=== PATIENT | male | born 1950 | race Caucasian/White ===

== ENCOUNTER 2021-12-27 16:00 | Inpatient (IN) ==
[2021-12-27] MEDS ORDERED: *HR* LORazepam 2 MG/ML VIAL IVP ONE (16:21)
[2021-12-27 16:33] LABS: Basophils % 0.7 %; Eosinophils # 0.5 K/mcL (0.0-0.6); Eosinophils % 9.5 %; Hematocrit 42.4 % (37.5-50.1); Hemoglobin 14.1 g/dL (12.9-16.9); Immature Granulocytes % 0.4 % (0-4); Lymphocytes # 1.8 K/mcL (0.6-4.6); Lymphocytes % 31.8 %; Mean Corpuscular HGB Conc 33.3 g/dL (31.6-35.5); Mean Corpuscular Hemoglobin 29.6 pg (28.0-33.3); Mean Corpuscular Volume 89.1 fL (83.0-100.0); Mean Platelet Volume 9.8 fL (9.4-12.4); Monocytes # 0.5 K/mcL (0.0-1.3); Monocytes % 8.8 %; Neutrophils # 2.8 K/mcL (1.6-8.9); Platelet Count 293 K/mcL (140-400); Red Blood Count 4.76 M/mcL (4.19-5.50); Red Cell Distribution Width 14.8 % (11.5-14.5); Segmented Neutrophils % 48.8 %; White Blood Count 5.7 K/mcL (4.3-11.1)
[2021-12-27 16:54] LABS: Acetaminophen < 10 mcg/mL (10-20); BUN/Creatinine Ratio 16 (6-26); Blood Urea Nitrogen 11 mg/dL (8-23); Carbon Dioxide 31 mEq/L (23-29); Chloride 105 mEq/L (98-107); Chol/HDL Ratio 1.7 (0-4.9); Cholesterol 151 mg/dL (< 200); Ethanol 125 mg/dL (Less than 10); Glucose 97 mg/dL (70-105); HDL Cholesterol 91 mg/dL (40-59); LDL Cholesterol,Calculated 46 mg/dL (< 100); Osmolality,Calculated 293 (280-300); Potassium 3.4 mEq/L (3.5-5.1); Salicylate < 2.5 mg/dL (15.0-30.0); Sodium 142 mEq/L (136-145); Triglycerides 69 mg/dL (< 150); eGFR For African Americans > 60 (> 60); eGFR For Non-African Americans > 60 (> 60)
[2021-12-27 16:57] LABS: Troponin I < 0.03 ng/mL (< 0.04)
[2021-12-27 18:36] LABS: Estimated Average Glucose 120 mg/dl; Hemoglobin A1C 5.8 %
[2021-12-27 18:50] LABS: Bacteria,Urine Few per hpf (None-Few); Bilirubin,Urine Negative (Negative); Blood,Urine Negative (Negative); Clarity,Urine Turbid (Clear); Color,Urine Light-Yellow (Yellow); Glucose,Urine (UA) Normal (Normal); Hyaline Casts,Urine Few per lpf (None Seen); Ketones,Urine Negative (Negative); Leukocyte Esterase,Urine Negative (Negative); Mucus,Urine Few per lpf (None-Few); Nitrite,Urine Negative (Negative); Protein,Urine Trace mg/dL (Neg-Trace); RBC,Urine 0-3 per hpf (0-3); Specific Gravity,Urine 1.018 (1.010-1.025); Squamous Epithelial Cell,Urine Few per hpf (None-Few); Urobilinogen,Urine Normal (Normal)
[2021-12-27 19:03] LABS: Amphetamine Screen,Urine Negative ng/mL (Cutoff=1000); Barbiturate Screen,Urine Negative ng/mL (Cutoff=200); Benzodiazepines Screen,Urine Positive ng/mL (Cutoff=200); Cannabinoid Screen,Urine Negative ng/mL (Cutoff = 50); Cocaine Screen,Urine Negative ng/mL (Cutoff= 300); Opiate Screen,Urine Negative ng/mL (Cutoff=300); Phencyclidine Screen,Urine Negative ng/mL (Cutoff=25)
[2021-12-27] MEDS ORDERED: Naloxone 0.4 MG/ML INJ IVP PRN (19:59)
[2021-12-27] MEDS ORDERED: *HR* LORazepam 1 MG TABLET PO PRN ×2 (19:59)
[2021-12-27] MEDS ORDERED: *HR* LORazepam 2 MG/ML VIAL IVP PRN ×2 (19:59)
[2021-12-27] MEDS ORDERED: Ondansetron 4 MG/2 ML VIAL IVP ONE (20:05)
[2021-12-27 21:04] LABS: Influenza A PCR Negative (Negative); Influenza B PCR Negative (Negative); Resp. Syncytial Virus PCR Negative (Negative)
[2021-12-27 21:08] LABS: SARS-CoV-2 by PCR (In House) Negative (Negative)
[2021-12-27] MEDS: *HR* LORazepam 2 MG/ML VIAL IVP PRN (23:03)
[2021-12-28 02:50] LABS: Basophils % 0.7 %; Eosinophils # 0.7 K/mcL (0.0-0.6); Eosinophils % 11.7 %; Hematocrit 43.3 % (37.5-50.1); Hemoglobin 14.2 g/dL (12.9-16.9); Immature Granulocytes % 0.5 % (0-4); Lymphocytes # 1.5 K/mcL (0.6-4.6); Mean Corpuscular HGB Conc 32.8 g/dL (31.6-35.5); Mean Corpuscular Hemoglobin 29.8 pg (28.0-33.3); Mean Corpuscular Volume 90.8 fL (83.0-100.0); Mean Platelet Volume 9.7 fL (9.4-12.4); Monocytes # 0.7 K/mcL (0.0-1.3); Monocytes % 12.3 %; Platelet Count 271 K/mcL (140-400); Red Blood Count 4.77 M/mcL (4.19-5.50); Red Cell Distribution Width 14.7 % (11.5-14.5); Segmented Neutrophils % 49.8 %
[2021-12-28 03:27] LABS: Alanine Aminotransferase 26 Units/L (7-52); Albumin 3.7 g/dL (3.5-5.7); Albumin/Globulin Ratio 1.5 (1.1-2.2); Alkaline Phosphatase 55 Units/L (34-104); Aspartate Amino Transferase 26 Units/L (13-39); BUN/Creatinine Ratio 21 (6-26); Bilirubin,Total 0.5 mg/dL (0.3-1.0); Blood Urea Nitrogen 15 mg/dL (8-23); Calcium 8.7 mg/dL (8.6-10.3); Carbon Dioxide 33 mEq/L (23-29); Chloride 106 mEq/L (98-107); Globulin 2.4 g/dL (2.4-3.5); Glucose 95 mg/dL (70-105); Magnesium 1.7 mg/dL (1.6-2.6); Osmolality,Calculated 297 (280-300); Phosphorous 4.2 mg/dL (2.7-4.5); Potassium 4.5 mEq/L (3.5-5.1); Sodium 143 mEq/L (136-145); Total Protein 6.1 g/dL (6.4-8.9); Troponin I < 0.03 ng/mL (< 0.04); eGFR For African Americans > 60 (> 60); eGFR For Non-African Americans > 60 (> 60)
[2021-12-28] MEDS: *HR* Heparin 5,000 UNIT/ML VIAL SQ SCH ×3 (05:15→19:47)
[2021-12-28] MEDS: *HR* LORazepam 2 MG/ML VIAL IVP PRN ×2 (12:53→18:35)
[2021-12-28] MEDS ORDERED: Melatonin 3 MG TABLET PO PRN (12:58)
[2021-12-28] MEDS: Aspirin Enteric Coated 81 MG Tablet PO SCH (13:16)
[2021-12-28] MEDS: Metoprolol XL (24 HR) Succ 25 MG TAB.ER.24H PO SCH (13:16)
[2021-12-28] MEDS: amLODIPine 5 MG TABLET PO SCH (13:16)
[2021-12-28] MEDS: Ondansetron ODT 4 MG TAB.RAPDIS SL PRN (13:17)
[2021-12-28] MEDS: Gabapentin 400 MG CAPSULE PO SCH ×2 (16:44→19:46)
[2021-12-28] MEDS: Acetaminophen 325 MG TABLET PO PRN (18:35)
[2021-12-28] MEDS: Ipratropium/Albuterol Neb 3 ML IH PRN (22:42)
[2021-12-29] MEDS: *HR* LORazepam 2 MG/ML VIAL IVP PRN ×5 (00:31→21:04)
[2021-12-29 01:52] LABS: Basophils % 0.6 %; Eosinophils # 0.5 K/mcL (0.0-0.6); Eosinophils % 9.9 %; Hemoglobin 13.2 g/dL (12.9-16.9); Immature Granulocytes % 0.4 % (0-4); Lymphocytes # 1.6 K/mcL (0.6-4.6); Lymphocytes % 28.9 %; Mean Corpuscular HGB Conc 32.2 g/dL (31.6-35.5); Mean Corpuscular Hemoglobin 29.5 pg (28.0-33.3); Mean Corpuscular Volume 91.5 fL (83.0-100.0); Mean Platelet Volume 9.5 fL (9.4-12.4); Monocytes # 0.6 K/mcL (0.0-1.3); Monocytes % 10.3 %; Neutrophils # 2.7 K/mcL (1.6-8.9); Platelet Count 258 K/mcL (140-400); Red Blood Count 4.48 M/mcL (4.19-5.50); Red Cell Distribution Width 14.6 % (11.5-14.5); Segmented Neutrophils % 49.9 %; White Blood Count 5.4 K/mcL (4.3-11.1)
[2021-12-29 02:11] LABS: BUN/Creatinine Ratio 28 (6-26); Blood Urea Nitrogen 20 mg/dL (8-23); Calcium 8.4 mg/dL (8.6-10.3); Carbon Dioxide 34 mEq/L (23-29); Chloride 103 mEq/L (98-107); Glucose 139 mg/dL (70-105); Osmolality,Calculated 295 (280-300); Potassium 3.5 mEq/L (3.5-5.1); Sodium 140 mEq/L (136-145); eGFR For African Americans > 60 (> 60); eGFR For Non-African Americans > 60 (> 60)
[2021-12-29] MEDS: *HR* Heparin 5,000 UNIT/ML VIAL SQ SCH ×3 (05:34→21:04)
[2021-12-29] MEDS: Aspirin Enteric Coated 81 MG Tablet PO SCH (08:22)
[2021-12-29] MEDS: Benzonatate 100 MG CAPSULE PO SCH ×3 (08:22→21:03)
[2021-12-29] MEDS: amLODIPine 5 MG TABLET PO SCH (08:22)
[2021-12-29] MEDS: Gabapentin 400 MG CAPSULE PO SCH ×3 (08:22→21:03)
[2021-12-29] MEDS: lisinopriL 20 MG TABLET PO SCH (08:23)
[2021-12-29] MEDS: Nicotine 21 MG PATCH.TD24 TD SCH (08:23)
[2021-12-29] MEDS: Fluticasone Propionate Nasal 50 MCG/SPRAY BOTTLE NS SCH (08:23)
[2021-12-29] MEDS: Metoprolol XL (24 HR) Succ 25 MG TAB.ER.24H PO SCH (08:23)
[2021-12-29] MEDS: Ipratropium/Albuterol Neb 3 ML IH PRN ×2 (08:41→19:59)
[2021-12-29] MEDS ORDERED: lisinopriL 20 MG TABLET PO SCH (09:00)
[2021-12-29] MEDS: Ondansetron ODT 4 MG TAB.RAPDIS SL PRN (10:12)
[2021-12-29] MEDS: Acetaminophen 325 MG TABLET PO PRN ×2 (10:12→21:03)
[2021-12-29] MEDS: Ondansetron 4 MG/2 ML VIAL IVP PRN (22:05)
[2021-12-29] MEDS: Mirtazapine 15 MG TABLET PO SCH (22:06)
[2021-12-30] MEDS: Fluticasone Propionate Nasal 50 MCG/SPRAY BOTTLE NS SCH ×3 (04:47→22:02)
[2021-12-30] MEDS: *HR* Heparin 5,000 UNIT/ML VIAL SQ SCH ×3 (05:31→22:03)
[2021-12-30] MEDS: *HR* LORazepam 2 MG/ML VIAL IVP PRN ×2 (05:34→10:15)
[2021-12-30 06:01] LABS: Basophils % 0.5 %; Eosinophils # 0.6 K/mcL (0.0-0.6); Eosinophils % 10.3 %; Hematocrit 42.8 % (37.5-50.1); Hemoglobin 13.7 g/dL (12.9-16.9); Immature Granulocytes % 0.5 % (0-4); Lymphocytes # 1.4 K/mcL (0.6-4.6); Lymphocytes % 21.7 %; Mean Corpuscular Hemoglobin 29.7 pg (28.0-33.3); Mean Corpuscular Volume 92.8 fL (83.0-100.0); Mean Platelet Volume 9.7 fL (9.4-12.4); Monocytes # 0.6 K/mcL (0.0-1.3); Neutrophils # 3.6 K/mcL (1.6-8.9); Platelet Count 243 K/mcL (140-400); Red Blood Count 4.61 M/mcL (4.19-5.50); Red Cell Distribution Width 14.6 % (11.5-14.5); White Blood Count 6.2 K/mcL (4.3-11.1)
[2021-12-30 06:32] LABS: BUN/Creatinine Ratio 12 (6-26); Blood Urea Nitrogen 8 mg/dL (8-23); Calcium 8.7 mg/dL (8.6-10.3); Carbon Dioxide 30 mEq/L (23-29); Chloride 104 mEq/L (98-107); Glucose 138 mg/dL (70-105); Osmolality,Calculated 289 (280-300); Potassium 4.3 mEq/L (3.5-5.1); Sodium 139 mEq/L (136-145); eGFR For African Americans > 60 (> 60); eGFR For Non-African Americans > 60 (> 60)
[2021-12-30] MEDS: lisinopriL 20 MG TABLET PO SCH (07:42)
[2021-12-30] MEDS: Aspirin Enteric Coated 81 MG Tablet PO SCH (07:42)
[2021-12-30] MEDS: Metoprolol XL (24 HR) Succ 25 MG TAB.ER.24H PO SCH (07:42)
[2021-12-30] MEDS: Gabapentin 400 MG CAPSULE PO SCH ×3 (07:42→22:03)
[2021-12-30] MEDS: Benzonatate 100 MG CAPSULE PO SCH ×3 (07:42→22:02)
[2021-12-30] MEDS: amLODIPine 5 MG TABLET PO SCH (07:42)
[2021-12-30] MEDS: Nicotine 21 MG PATCH.TD24 TD SCH (07:43)
[2021-12-30] MEDS: Ondansetron 4 MG/2 ML VIAL IVP PRN (08:00)
[2021-12-30] MEDS: *HR* LORazepam 1 MG TABLET PO PRN (16:39)
[2021-12-30] MEDS: Ipratropium/Albuterol Neb 3 ML IH PRN (20:05)
[2021-12-30] MEDS: Mirtazapine 15 MG TABLET PO SCH (22:03)
[2021-12-31 03:02] LABS: Basophils % 0.5 %; Eosinophils # 0.7 K/mcL (0.0-0.6); Eosinophils % 11.9 %; Hematocrit 41.1 % (37.5-50.1); Hemoglobin 13.3 g/dL (12.9-16.9); Immature Granulocytes % 0.5 % (0-4); Lymphocytes # 1.7 K/mcL (0.6-4.6); Lymphocytes % 28.6 %; Mean Corpuscular HGB Conc 32.4 g/dL (31.6-35.5); Mean Corpuscular Hemoglobin 29.8 pg (28.0-33.3); Mean Corpuscular Volume 92.2 fL (83.0-100.0); Mean Platelet Volume 9.9 fL (9.4-12.4); Monocytes # 0.6 K/mcL (0.0-1.3); Monocytes % 9.7 %; Neutrophils # 2.9 K/mcL (1.6-8.9); Platelet Count 251 K/mcL (140-400); Red Blood Count 4.46 M/mcL (4.19-5.50); Red Cell Distribution Width 14.6 % (11.5-14.5); Segmented Neutrophils % 48.8 %; White Blood Count 5.9 K/mcL (4.3-11.1)
[2021-12-31 03:16] LABS: BUN/Creatinine Ratio 10 (6-26); Blood Urea Nitrogen 9 mg/dL (8-23); Calcium 8.9 mg/dL (8.6-10.3); Carbon Dioxide 36 mEq/L (23-29); Chloride 101 mEq/L (98-107); Glucose 140 mg/dL (70-105); Osmolality,Calculated 293 (280-300); Potassium 3.7 mEq/L (3.5-5.1); Sodium 141 mEq/L (136-145); eGFR For African Americans > 60 (> 60); eGFR For Non-African Americans > 60 (> 60)
[2021-12-31] MEDS: *HR* Heparin 5,000 UNIT/ML VIAL SQ SCH ×3 (05:51→20:28)
[2021-12-31] MEDS: Aspirin Enteric Coated 81 MG Tablet PO SCH (08:38)
[2021-12-31] MEDS: Benzonatate 100 MG CAPSULE PO SCH ×3 (08:38→20:29)
[2021-12-31] MEDS: Thiamine (B-1) 100 MG TABLET PO SCH (08:39)
[2021-12-31] MEDS: Nicotine 21 MG PATCH.TD24 TD SCH (08:39)
[2021-12-31] MEDS: Gabapentin 400 MG CAPSULE PO SCH ×3 (08:39→20:29)
[2021-12-31] MEDS: Metoprolol XL (24 HR) Succ 25 MG TAB.ER.24H PO SCH (08:39)
[2021-12-31] MEDS: amLODIPine 5 MG TABLET PO SCH (08:39)
[2021-12-31] MEDS: lisinopriL 20 MG TABLET PO SCH (08:39)
[2021-12-31] MEDS: Fluticasone Propionate Nasal 50 MCG/SPRAY BOTTLE NS SCH ×2 (08:40→20:28)
[2021-12-31] MEDS: *HR* LORazepam 1 MG TABLET PO PRN ×2 (08:50→17:23)
[2021-12-31] MEDS: Acetaminophen 325 MG TABLET PO PRN (08:50)
[2021-12-31 09:47] LABS: Influenza A PCR Negative (Negative); Influenza B PCR Negative (Negative); Resp. Syncytial Virus PCR Negative (Negative)
[2021-12-31 10:21] LABS: SARS-CoV-2 by PCR (In House) Negative (Negative)
[2021-12-31] MEDS: Mirtazapine 15 MG TABLET PO SCH (20:28)
[2021-12-31] MEDS: Ipratropium/Albuterol Neb 3 ML IH PRN (20:33)
[2022-01-01] MEDS: *HR* LORazepam 1 MG TABLET PO PRN ×2 (01:43→11:41)
[2022-01-01 03:23] LABS: Basophils % 0.5 %; Eosinophils # 0.7 K/mcL (0.0-0.6); Eosinophils % 11.5 %; Hematocrit 44.3 % (37.5-50.1); Hemoglobin 14.3 g/dL (12.9-16.9); Immature Granulocytes % 0.7 % (0-4); Lymphocytes # 1.7 K/mcL (0.6-4.6); Lymphocytes % 27.7 %; Mean Corpuscular HGB Conc 32.3 g/dL (31.6-35.5); Mean Corpuscular Hemoglobin 29.6 pg (28.0-33.3); Mean Corpuscular Volume 91.7 fL (83.0-100.0); Mean Platelet Volume 10.2 fL (9.4-12.4); Monocytes # 0.6 K/mcL (0.0-1.3); Monocytes % 9.8 %; Platelet Count 253 K/mcL (140-400); Red Blood Count 4.83 M/mcL (4.19-5.50); Red Cell Distribution Width 14.7 % (11.5-14.5); Segmented Neutrophils % 49.8 %
[2022-01-01 03:42] LABS: BUN/Creatinine Ratio 16 (6-26); Blood Urea Nitrogen 12 mg/dL (8-23); Calcium 9.5 mg/dL (8.6-10.3); Carbon Dioxide 35 mEq/L (23-29); Chloride 101 mEq/L (98-107); Glucose 131 mg/dL (70-105); Osmolality,Calculated 292 (280-300); Potassium 3.9 mEq/L (3.5-5.1); Sodium 140 mEq/L (136-145)
[2022-01-01] MEDS: *HR* Heparin 5,000 UNIT/ML VIAL SQ SCH ×2 (05:29→11:57)
[2022-01-01] MEDS: Metoprolol XL (24 HR) Succ 25 MG TAB.ER.24H PO SCH (08:19)
[2022-01-01] MEDS: lisinopriL 20 MG TABLET PO SCH (08:19)
[2022-01-01] MEDS: Thiamine (B-1) 100 MG TABLET PO SCH (08:20)
[2022-01-01] MEDS: Gabapentin 400 MG CAPSULE PO SCH ×2 (08:20→15:19)
[2022-01-01] MEDS: Aspirin Enteric Coated 81 MG Tablet PO SCH (08:20)
[2022-01-01] MEDS: Nicotine 21 MG PATCH.TD24 TD SCH (08:20)
[2022-01-01] MEDS: amLODIPine 5 MG TABLET PO SCH (08:20)
[2022-01-01] MEDS: Benzonatate 100 MG CAPSULE PO SCH ×2 (08:20→15:19)
[2022-01-01] MEDS: Fluticasone Propionate Nasal 50 MCG/SPRAY BOTTLE NS SCH (08:21)
[2022-01-01] MEDS ORDERED: Folic Acid 1 MG TABLET PO SCH (11:30)
[2022-01-01 12:23] VITALS: BP 131/83; PULSE 81; TEMP 98.5
[2022-01-01 12:40] LABS: Influenza A PCR Negative (Negative); Influenza B PCR Negative (Negative); Resp. Syncytial Virus PCR Negative (Negative)
[2022-01-01 12:41] LABS: SARS-CoV-2 by PCR (In House) Negative (Negative)
[2022-01-01] MEDS: Ipratropium/Albuterol Neb 3 ML IH PRN (13:48)
[2022-01-01 13:51] VITALS: O2SAT 94
[2022-01-01] MEDS: Acetaminophen 325 MG TABLET PO PRN (15:32)
== END 2022-01-01 15:41 | DRG 897 ==
LOC: EMEROOARM 16:00 → 3BNU 16:00 → 2NENU 20:38 → SUATTDRO 12-29 07:55
PROVIDERS: ADMIT Internal Medicine; ATTEND Internal Medicine